=== PATIENT | female | born 1980 | race Two or more races ===

== ENCOUNTER 2022-05-13 17:00 | Emergency (ER) | payer OTHER ==
[~2022-05-13] VITALS: Ht 152.4 cm; Wt 56.0 kg
[2022-05-13 17:27] VITALS: BP 102/72
[2022-05-13] MEDS ORDERED: ONDANSETRON ODT 4 MG TAB PO ONE (17:30)
[2022-05-13] MEDS ORDERED: ACETAMINOPHEN 500 MG TAB PO ONE (18:30)
[2022-05-13] MEDS ORDERED: IBUP600T27 PO (18:51)
[2022-05-13] MEDS ORDERED: CYCL-611 PO (18:51)
[2022-05-13] MEDS ORDERED: KETOROLAC TROMETH 60MG/2ML VIAL IM ONE (19:00)
== END 2022-05-13 19:53 | disposition home or self-care (01) ==
LOC: ER 17:00
DX: S06.0X0A Concussion without loss of consciousness, initial encounter (principal); X58.XXXA Exposure to other specified factors, initial encounter; Y93.89 Activity, other specified; Y92.89 Other specified places as the place of occurrence of the external cause; Y99.8 Other external cause status
CPT/HCPCS: 70450; 72125; 82962; 93005; 96372; 99284; J1885; Q0162